=== PATIENT | male | born 1980 | race Caucasian/White ===

== ENCOUNTER 2023-04-02 13:38 | Emergency (ER) | payer BC, SELFPAY ==
[2023-04-02 14:01] VITALS: BP 121/94; PULSE 83; RESP 18; TEMP 36.7; O2SAT 99; BMI 27.8
--- NOTE | 2023-04-02 14:08 | CT_ITS ---
The [address] [address] Patient Name: AMERICO AUSTIN MRN: [id number] date: 1980 Sex: M Assigned Patient Location: ED.MAIN Current Patient Location: ED.MAIN Accession/Order Number: [id number] Exam Date: 04/02/2023 14:20 Report Date: 04/02/2023 15:24 At the request of: KACY ORTEGA Procedure: CT abdomen pelvis wo con CT ABDOMEN/PELVIS WITHOUT IV CONTRAST. INDICATION: kidney stone COMPARISON: There are no other studies available for comparison. TECHNIQUE: Contiguous axial images were obtained from the lung bases to the pelvic floor without intravenous or oral contrast. Coronal and sagittal reformations are provided. FINDINGS: LOWER LUNGS: Clear. LIVER/BILIARY TREE: No discrete lesion. No intrahepatic ductal dilatation. Hepatic steatosis. GALLBLADDER: No significant gallbladder wall thickening. No radiopaque stone. CBD: Normal CBD. SPLEEN: Normal in size. PANCREAS: No appreciable peripancreatic fluid. No pancreatic ductal dilatation. No discrete lesion. ADRENALS: Normal. KIDNEYS: There is mild right hydronephrosis and hydroureter without appreciable calcified obstructing ureteral stone. There is some transitioning in the distal third of the ureter. There is mild right perinephric stranding. There is a nonobstructing right renal stone. STOMACH AND BOWEL: Stomach is unremarkable. No dilated bowel loops. No bowel wall thickening. APPENDIX: Normal appendix. PERITONEAL CAVITY: No fluid. There is mild right perinephric stranding. ABDOMINAL WALL: No subcutaneous stranding. No subcutaneous fluid collection. There is a small umbilical hernia containing fat LYMPH NODES: No mesenteric or retroperitoneal lymphadenopathy by CT criteria. ABDOMINAL AORTA: No aneurysm. PELVIS: No acute abnormality. MUSCULOSKELETAL: No acute osseous abnormality. There is minimal grade 1 anterolisthesis at L5-S1 secondary to chronic bilateral L5 pars defects. There is mild L5-S1 degenerative spondylosis. CT/CT abdomen pelvis wo con IMPRESSION: Mild right hydronephrosis and hydroureter which may be secondary to a noncalcified obstructing ureteral stone or urinary tract infection/pyelonephritis. Correlate clinically. Right nephrolithiasis. Electronically authenticated by: TONYA REICH Date: 04/02/2023 15:24
[2023-04-02 14:24] LABS: Basophils Percent Auto 0.3 % (0.2-2.0); Eosinophils Absolute Auto 0.1 10^3/uL (0.0-0.7); Eosinophils Percent Auto 0.8 % (0.9-7.0); Hematocrit 45.2 % (42.0-54.0); Hemoglobin 15.4 g/dL (14.0-18.0); Immature Granulocytes Abs Auto 0.01 10^3/uL (0.00-0.03); Immature Granulocytes Pct Auto 0.2 % (0.0-0.5); Lymphocytes Percent Auto 16.3 % (20.5-60.0); Mean Corpuscular HGB Conc 34.1 g/dL (29.9-35.2); Mean Corpuscular Hemoglobin 30.3 pg (25.9-34.0); Mean Platelet Volume 9.9 fL (9.5-13.5); Monocytes Absolute Auto 0.5 10^3/uL (0.3-0.8); Monocytes Percent Auto 8.1 % (1.7-12.0); Neutrophils Absolute Auto 4.7 10^3/uL (1.4-6.5); Neutrophils Percent Auto 74.3 % (43.0-75.0); Platelet Count 213 10^3/uL (150-450); Red Blood Count 5.08 10^6/uL (4.70-6.10); Red Cell Distribution Width 12.3 % (11.0-15.0); White Blood Count 6.3 10^3/uL (4.0-11.0)
[2023-04-02 14:50] LABS: Alanine Aminotransferase 40 U/L (16-63); Albumin Level 3.9 g/dL (3.4-5.0); Alkaline Phosphatase 73 U/L (46-116); Anion Gap 11.3; Aspartate Amino Transferase 17 U/L (15-37); BUN Creatinine Ratio 20.2; Bilirubin Total 0.5 mg/dL (0.2-1.0); Calcium 9.8 mg/dL (8.5-10.1); Carbon Dioxide 28.4 mmol/L (21.0-32.0); Chloride 103 mmol/L (98-107); Estimated GFR (African America >60 (>=60); Estimated GFR (Non-African Ame >60 (>=60); Glucose 112 mg/dL (74-106); Potassium 3.7 mmol/L (3.5-5.1); Sodium 139 mmol/L (136-145); Total Protein 7.9 g/dL (6.4-8.2)
[2023-04-02 15:09] LABS: Bilirubin Urine NEGATIVE (NEGATIVE); Blood Urine MODERATE (NEGATIVE); Clarity Urine CLEAR (CLEAR); Color Urine LT. YELLOW (YELLOW); Glucose Urine UA NEGATIVE (NEGATIVE); Ketones Urine NEGATIVE (NEGATIVE); Leukocyte Esterase Urine LARGE (NEGATIVE); Nitrite Urine NEGATIVE (NEGATIVE); Protein Urine NEGATIVE (NEG/TRACE); Specific Gravity Urine <=1.005 (1.005-1.025); Urobilinogen Urine 0.2 EU/dL (0.2-1.0); pH Urine 6.5 (5.0-9.0)
[2023-04-02 15:10] LABS: Urine Microscopic Indicated YES
[2023-04-02 15:15] LABS: Bacteria Urine TRACE #/HPF (NONE SEEN); Cast Seen? NONE SEEN #/LPF (NONE SEEN); Crystals Seen? None Seen #/HPF (None Seen); Mucus Urine NONE SEEN (NONE SEEN); Squamous Epithelial Cell Urine FEW #/LPF (NONE/RARE); Urine Culture Indicated YES
--- NOTE | 2023-04-02 16:23 | ED.GENADUL1 ---
HPI - General Adult General Chief complaint: Abdominal Pain Stated complaint: poss kidney stone Time Seen by Provider: 04/02/23 14:07 History of Present Illness HPI narrative: Patient is a 42-year-old male who presents to the emergency department for a 1 week history of urinary symptoms. Patient states he developed dysuria, dark urine that is foul-smelling and urinary frequency 1 week ago. In the last day he has developed minimal discomfort in the low back. He has no significant flank or abdominal pain. No fevers, vomiting. No blood in his urine. No medications taken prior to arrival. Related Data Previous Rx's Medication Instructions Recorded ciprofloxacin HCl 500 mg tablet 500 mg PO BID #14 tabs 04/02/23 (Cipro) ketorolac 10 mg tablet 10 mg PO TID PRN pain #10 tabs 04/02/23 ondansetron 4 mg disintegrating 4 mg PO Q6H PRN nausea and 04/02/23 tablet vomiting #12 tabs phenazopyridine 200 mg tablet 200 mg PO Q8H 2 days #6 tabs 04/02/23 (Pyridium) Allergies Allergy/AdvReac Type Severity Reaction Status Date / Time No Known Drug Allergies Allergy Verified 04/02/23 14:04 Review of Systems ROS Constitutional Denies: fever or chills Ears, nose, mouth, and throat Denies: throat pain Cardiovascular Denies: chest pain Respiratory Denies: shortness of breath or cough Gastrointestinal Denies: abdominal pain, nausea or vomiting Genitourinary Reports: painful urination, urinary frequency and urinary urgency Musculoskeletal Reports: back pain; Denies: neck pain Integumentary/Breast Denies: rash Neurological Denies: headache Endocrine Denies: excessive urination [facility] Social History Smoking status: Current every day smoker Exam Narrative Exam Narrative: Gen.: Awake, alert, in no distress Head: Normocephalic, atraumatic ENT: Moist mucous membranes Respiratory: No respiratory distress Gastrointestinal: Abdomen is soft, nondistended and nontender to palpation; no CVA tenderness or flank tenderness Extremities: Moves extremities equally Psych: Normal mood and affect Neuro: No focal neuro deficit Skin: Warm, dry, intact Constitutional Vital Signs, click to edit/add: Last Vital Signs Temp 98.0 F 04/02/23 14:01 Pulse 83 04/02/23 14:01 Resp 18 04/02/23 14:01 BP 121/94 H 04/02/23 14:01 Pulse Ox 99 04/02/23 14:01 O2 Del Method Room Air 04/02/23 14:01 Course Vital Signs Vital signs: Vital Signs Temperature 98.0 F 04/02/23 14:01 Pulse Rate 83 04/02/23 14:01 Respiratory Rate 18 04/02/23 14:01 Blood Pressure 121/94 H 04/02/23 14:01 Pulse Oximetry 99 04/02/23 14:01 Oxygen Delivery Method Room Air 04/02/23 14:01 Temperature 98.0 F 04/02/23 14:01 Pulse Rate 83 04/02/23 14:01 Respiratory Rate 18 04/02/23 14:01 Blood Pressure 121/94 H 04/02/23 14:01 Pulse Oximetry 99 04/02/23 14:01 Oxygen Delivery Method Room Air 04/02/23 14:01 Medical Decision Making MDM Narrative Medical decision making narrative: The majority of the patient's workup was completed in the lobby, CBC, CMP, urine specimen were obtained. Blood work is normal, urine specimen shows mild UTI and CT of the abdomen and pelvis without contrast shows the patient has minimal right-sided hydronephrosis with no ureteral stones noted. He was counseled that he may have early pyelonephritis versus recently passed stone. He is treated for UTI with Cipro, Pyridium, Toradol, Zofran. Follow-up with PCP and return to the ER if symptoms change or worsen. Medical Records Medical records reviewed: Yes I reviewed the patient's medical records Lab Data Lab results reviewed: Yes I reviewed the patient's lab results Labs: Lab Results 04/02/23 04/02/23 Range/Units 14:16 14:38 WBC 6.3 (4.0-11.0) 10^3/uL RBC 5.08 (4.70-6.10) 10^6/uL Hgb 15.4 (14.0-18.0) g/dL Hct 45.2 (42.0-54.0) % MCV 89.0 (80.0-94.0) fL MCH 30.3 (25.9-34.0) pg MCHC 34.1 (29.9-35.2) g/dL RDW 12.3 (11.0-15.0) % Plt Count 213 (150-450) 10^3/uL MPV 9.9 (9.5-13.5) fL Neut % (Auto) 74.3 (43.0-75.0) % Lymph % (Auto) 16.3 L (20.5-60.0) % Parker % (Auto) 8.1 (1.7-12.0) % Eos % (Auto) 0.8 L (0.9-7.0) % Baso % (Auto) 0.3 (0.2-2.0) % Neut # (Auto) 4.7 (1.4-6.5) 10^3/uL Lymph # (Auto) 1.0 L (1.2-3.8) 10^3/uL Parker # (Auto) 0.5 (0.3-0.8) 10^3/uL Eos # (Auto) 0.1 (0.0-0.7) 10^3/uL Baso # (Auto) 0.0 (0.0-0.1) 10^3/uL Abs Immat Gran (auto) 0.01 (0.00-0.03) 10^3/uL Imm/Tot Granulo (auto) 0.2 (0.0-0.5) % Sodium 139 (136-145) mmol/L Potassium 3.7 (3.5-5.1) mmol/L Chloride 103 (98-107) mmol/L Carbon Dioxide 28.4 (21.0-32.0) mmol/L Anion Gap 11.3 BUN 21.0 H (7.0-18.0) mg/dL Creatinine 1.04 (0.70-1.30) mg/dL Est GFR ( Amer) >60 (>=60) Est GFR (Non-Af Amer) >60 (>=60) BUN/Creatinine Ratio 20.2 Glucose 112 H (74-106) mg/dL Calcium 9.8 (8.5-10.1) mg/dL Total Bilirubin 0.5 (0.2-1.0) mg/dL AST 17 (15-37) U/L ALT 40 (16-63) U/L Alkaline Phosphatase 73 (46-116) U/L Total Protein 7.9 (6.4-8.2) g/dL Albumin 3.9 (3.4-5.0) g/dL Globulin 4.0 g/dL Albumin/Globulin Ratio 1.0 Urine Color Lt. yellow (YELLOW) Urine Clarity Clear (CLEAR) Urine pH 6.5 (5.0-9.0) Ur Specific Jackson <=1.005 A (1.005-1.025) Urine Protein Negative (NEG/TRACE) mg/dL Urine Glucose (UA) Negative (NEGATIVE) mg/dL Urine Ketones Negative (NEGATIVE) mg/dL Urine Occult Blood Moderate A (NEGATIVE) Urine Nitrite Negative (NEGATIVE) Urine Bilirubin Negative (NEGATIVE) Urine Urobilinogen 0.2 (0.2-1.0) EU/dL Ur Leukocyte Esterase Large A (NEGATIVE) Urine RBC 10-20 A (0-2) #/HPF Urine WBC 10-20 A (NONE SEEN) #/HPF Ur Squamous Epith Cells Few A (NONE/RARE) #/LPF Urine Crystals None seen (None Seen) #/HPF Urine Bacteria Trace A (NONE SEEN) #/HPF Urine Casts None seen (NONE SEEN) #/LPF Urine Mucus None seen (NONE SEEN) Ur Culture Indicated? Yes Imaging Data CT scan - abdomen: Attestation: I have reviewed the pertinent imaging results. Radiologist's impression: Procedure: CT abdomen pelvis wo con CT ABDOMEN/PELVIS WITHOUT IV CONTRAST. INDICATION: kidney stone COMPARISON: There are no other studies available for comparison. TECHNIQUE: Contiguous axial images were obtained from the lung bases to the pelvic floor without intravenous or oral contrast. Coronal and sagittal reformations are provided. FINDINGS: LOWER LUNGS: Clear. LIVER/BILIARY TREE: No discrete lesion. No intrahepatic ductal dilatation. Hepatic steatosis. GALLBLADDER: No significant gallbladder wall thickening. No radiopaque stone. CBD: Normal CBD. SPLEEN: Normal in size. PANCREAS: No appreciable peripancreatic fluid. No pancreatic ductal dilatation. No discrete lesion. ADRENALS: Normal. KIDNEYS: There is mild right hydronephrosis and hydroureter without appreciable calcified obstructing ureteral stone. There is some transitioning in the distal third of the ureter. There is mild right perinephric stranding. There is a nonobstructing right renal stone. STOMACH AND BOWEL: Stomach is unremarkable. No dilated bowel loops. No bowel wall thickening. APPENDIX: Normal appendix. PERITONEAL CAVITY: No fluid. There is mild right perinephric stranding. ABDOMINAL WALL: No subcutaneous stranding. No subcutaneous fluid collection. There is a small umbilical hernia containing fat LYMPH NODES: No mesenteric or retroperitoneal lymphadenopathy by CT criteria. ABDOMINAL AORTA: No aneurysm. PELVIS: No acute abnormality. MUSCULOSKELETAL: No acute osseous abnormality. There is minimal grade 1 anterolisthesis at L5-S1 secondary to chronic bilateral L5 pars defects. There is mild L5-S1 degenerative spondylosis. IMPRESSION: Mild right hydronephrosis and hydroureter which may be secondary to a noncalcified obstructing ureteral stone or urinary tract infection/pyelonephritis. Correlate clinically. Right nephrolithiasis. Electronically authenticated by: TONYA REICH Date: 04/02/2023 15:24 Discharge Plan Discharge Chief Complaint: Abdominal Pain Clinical Impression: Acute UTI Patient Disposition: Home, Self-Care Time of Disposition Decision: 16:20 Condition: Good Prescriptions / Home Meds: New ciprofloxacin HCl [Cipro] 500 mg tablet 500 mg PO BID Qty: 14 0RF phenazopyridine [Pyridium] 200 mg tablet 200 mg PO Q8H 2 Days Qty: 6 0RF ketorolac 10 mg tablet 10 mg PO TID PRN (Reason: pain) Qty: 10 0RF ondansetron 4 mg tablet,disintegrating 4 mg PO Q6H PRN (Reason: nausea and vomiting) Qty: 12 0RF Instructions: Urinary Tract Infection in Men (DC) Stand Alone Forms: Portal Instructions Referrals: YAQUELIN HINOJOSA [Primary Care Provider] - 1 week
== END 2023-04-02 16:29 | disposition home or self-care (01) ==
PROVIDERS: Emergency Provider Emergency Medicine; PCP Family Medicine
DX: N39.0 Urinary tract infection, site not specified (principal); F17.200 Nicotine dependence, unspecified, uncomplicated
CPT/HCPCS: 36415; 74176; 80053; 81001; 85025; 87086; 87150; 87186; 99285